=== PATIENT | female | born 1960 | race Two or more races ===

== ENCOUNTER 2018-03-16 12:30 | Outpatient (CLI) | payer OTHER | END 2018-03-16 12:37 | disposition home or self-care (01) | LOC: MAMO-SONO 12:30 | DX: Z12.31 Encounter for screening mammogram for malignant neoplasm of breast (principal); N64.4 Mastodynia; N60.11 Diffuse cystic mastopathy of right breast ==

== ENCOUNTER 2019-07-12 10:30 | Outpatient (CLI) | payer OTHER | END 2019-07-12 10:37 | disposition home or self-care (01) | LOC: MAMO-SONO 10:30 | DX: Z12.31 Encounter for screening mammogram for malignant neoplasm of breast (principal); Z87.898 Personal history of other specified conditions; N63.10 Unspecified lump in the right breast, unspecified quadrant; N63.20 Unspecified lump in the left breast, unspecified quadrant; N64.4 Mastodynia; N60.11 Diffuse cystic mastopathy of right breast ==

== ENCOUNTER → 2019-08-05 | Outpatient (CLI) | payer OTHER | END | disposition home or self-care (01) | LOC: SONOGRAMA 12:00 | DX: E04.1 Nontoxic single thyroid nodule (principal) ==

== ENCOUNTER → 2021-01-22 14:14 | Outpatient (CLI) | payer OTHER | END | disposition home or self-care (01) | LOC: MAMO-SONO 11:15 → NUCLEAR 14:00 → MAMO-SONO 14:14 | PROVIDERS: ATTEND Obstetrics & Gynecology Maternal & Fetal Medicine | DX: M81.0 Age-related osteoporosis without current pathological fracture (principal) ==

== ENCOUNTER 2021-02-12 11:29 | Outpatient (CLI) | payer OTHER | END 2021-02-12 12:29 | disposition home or self-care (01) | LOC: MAMO-SONO 11:29 | PROVIDERS: ATTEND Obstetrics & Gynecology Maternal & Fetal Medicine | DX: N63 Unspecified lump in breast (principal); Z12.31 Encounter for screening mammogram for malignant neoplasm of breast; N64.4 Mastodynia; N60.11 Diffuse cystic mastopathy of right breast ==